=== PATIENT | male | born 1955 | race Caucasian/White ===

== ENCOUNTER 2016-04-02 10:45 | Inpatient (IN) | payer BC ==
[~2016-04-02] VITALS: Ht 177.8 cm; Wt 104.8 kg
[~2016-04-02 10:45] MED LIST: AMLO10TA2 PO; ATEN100T PO; FERR325T PO; LISI10TA2 PO; OMEPRAZOLE DR PO; TERA10CA3 PO
[2016-04-02] MEDS ORDERED: ADACEL/BOOSTRIX VACCINE (DIPHTH/PERTUSS/ACELL/TETANUS)0.5ML SYR (90715) As Ordered ONE (11:49)
[2016-04-02] MEDS ORDERED: cefTRIAXone SOD 1 GM VIAL (J0696) As Ordered ONE (11:49)
--- NOTE | 2016-04-02 11:54 | REP ---
CT brain without contrast: History: Trauma. No comparison studies. Findings: Bone window settings demonstrate a right frontal scalp laceration and hematoma. There is a depressed right frontal bone calvarial fracture with 3.8 mm of depression. A moderate amount of pneumocephalus is seen in the right cerebral hemisphere extending over the anterior aspect of frontal lobe; but also at the vertex adjacent to the falx. The fracture extends along the temporal region on the right side without further depression. There is no visible intracranial hemorrhage. There is diffuse cerebral atrophy. No infarct or mass lesion is seen. Vascular calcification is noted and there is some left sphenoid sinus mucosal thickening. Impression: Depressed right frontotemporal skull fracture with scalp laceration and right pneumocephalus. No intracranial hemorrhage is seen. Vascular calcification is noted. There is some mucosal thickening in the left sphenoid sinus. Signed by Kleber Arroyo MD 04/02/2016 11:45 A
[2016-04-02 12:09] LABS: MEAN CORPUSCULAR HEMOGLOBIN 27.7 pg (27.0-33.0); MEAN CORPUSCULAR HGB CONC 34.6 g/dl (32.0-36.5); RED CELL DISTRIBUTION WIDTH 13.9 % (11.5-14.5); WHITE BLOOD COUNT 7.6 K/mm3 (4.0-10.0)
[2016-04-02 12:16] LABS: INR 0.93
--- NOTE | 2016-04-02 12:16 | REP ---
CT STUDY OF THE CERVICAL SPINE WITHOUT CONTRAST: HISTORY: Trauma. TECHNIQUE: Helical scanning is acquired and overlapping 2 mm high resolution axial images were generated and reviewed at bone and soft tissue window settings. Coronal and sagittal multiplanar reformations images are generated. CT FINDINGS: There is no evidence of cervical spine element fracture. No skull base fracture is seen. Cervical vertebral body heights are preserved. Alignment is normal. There is straightening and slight reversal of the normal cervical lordosis. Mild osteoarthritic facet disease is seen throughout the mid cervical spine. Facet joints are normally aligned bilaterally at each cervical level on multiplanar re-formations images. There is no evidence of intraspinal or paraspinal hematoma. No extra vertebral abnormality is seen. Degenerative disc disease is seen at multiple levels, most pronounced is C4-5, C5-6 and C6-7. IMPRESSION: Degenerative spondylosis changes, otherwise negative CT study of the cervical spine without contrast. No fracture seen. Signed by Kleber Arroyo MD 04/02/2016 02:04 P
--- NOTE | 2016-04-02 12:16 | REP ---
Portable chest: Single view. History: Chest pain. Comparison study: June 24, 2013 Findings: The lungs are well inflated and clear. EKG electrodes are seen. Pulmonary vasculature is not increased. Heart size is normal. The pleural angles are sharp. No bony abnormality is seen. Impression: No active disease. Signed by Kleber Arroyo MD 04/02/2016 12:08 P
[2016-04-02 12:19] LABS: CALCIUM LEVEL 8.8 MG/DL (8.8-10.2); CREATININE FOR GFR 1.34 MG/DL (0.70-1.30); GLOMERULAR FILTRATION RATE 57.9 (>49); POTASSIUM SERUM 4.3 MEQ/L (3.5-5.1)
[2016-04-02] MEDS ORDERED: ONDANSETRON 4MG/2ML VIAL (J2405) As Ordered ONE ×2 (12:21→14:40)
[2016-04-02] MEDS ORDERED: MORPHINE 4 MG/ML 1ML SYRINGE As Ordered ONE (12:21)
[2016-04-02] MEDS ORDERED: LISI2.5T3 PO (12:22)
[2016-04-02] MEDS ORDERED: ACET50TAOT PO (12:22)
[2016-04-02] MEDS ORDERED: OMEP20CA3 PO (12:22)
--- NOTE | 2016-04-02 12:30 | CR.PDOC ---
[facility] Consultation Consultation DATE OF CONSULTATION: Apr 02, 2016 at 10:45 ATTENDING PHYSICIAN: Dr. Ugalde REASON FOR CONSULTATION/CHIEF COMPLAINT: Medical management HISTORY OF PRESENT ILLNESS: Patient is a 60 year old male with a PMHx of HTN and GERD who presented to the ER with complaints of head pain after he was struck in the head by a tree branch. He noted that he was sawing a tree when it fell and struck another tree, resulting in one of the branches striking his head. He noted that he fell to the ground at that time but did not lose consciousness. He noted that he had severe pain at that time and sought medical attention. He denied any muscle weakness or sensory problems at the time. He denies any blurry vision or double vision. He denied chest pain, shortness of breath, cough , palpitations, fevers or chills. He denied any nausea, vomiting, abdominal pain, constipation, diarrhea or urinary symptoms. He notes that he walks without any issues. He can go up and down 2 or 3 flights of stairs without getting short of breath or experiencing chest pain. He denies any history of heart attack or stroke. He has not had a stress test or cardiac catheterization in the past. ALLERGIES: Please see below. HOME MEDICATIONS: Please see below. 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 REVIEW OF SYSTEMS: Constitutional: Denies weight loss, or change in appetite, Positive for recent trauma Eyes: No visual changes or eye pain Ears, Nose, Throat: Denies nose bleeds, or difficulty swallowing Cardiovascular: Denies chest pain, sweating, or orthopnea Respiratory: Denies cough, wheezing, or shortness of breath GI: Juan nausea, vomiting, abdominal pain, diarrhea or constipation : Denies pain with urination or frequency Musculoskeletal: Denies joint pain or swelling Neuro / Psych: Denies muscle weakness or sensory loss Skin: No skin rashes noted All other review of systems negative; otherwise stated in history of present illness PHYSICAL EXAMINATION: - Vitals: BP 169/95, HR 79, RR 20, Sat 97%RA, Temp 97.7F - General: Lying in bed, No acute distress, Speaking in full sentences, AAOx3 - HEENT: PERRLA, EOMI, Head in bandages, bleeding - CVS: RRR, +S1S2, - Murmurs / rubs / gallops - Lungs: Fair air entry bilaterally, Clear to auscultation, No wheezing / rales / rhonchi - Abdomen: Soft, Non-distended, Non-tender, + Bowel sounds x 4 - Extremities: + PPx4, No lower extremity edema, No calf tenderness - Neuro: No focal motor or sensory deficit, 5/5 muscles strength in all 4 extremities - Skin: No visible rashes LABORATORY DATA: Please see below. ASSESSMENT/PLAN: Depressed right frontotemproal skull fracture with scalp laceration and right pneumocephalus likely 2/2 head trauma from tree branch - Presented to hospital after trauma at 1000AM, denies muscle or sensory deficit , no visual problems - Physical exam reveals no neurologic deficits - CT scan consistent with fracture, pneumocephalus and laceration - EKG reviewed; no significant change compared to EKG from 05/2013 - Dr. Ugalde (Neurosurgery) will be managing this case likely will be taken to OR - Pain control per neurosurgery Possible acute kidney injury, vs. chronic kidney disease - Baseline creatinine unclear, history of Cr being as high as 5, currently at 1.34 - Reported history of severe acute kidney injury in the past 2/2 NSAID use, but noted it has improved almost close to normal - Follows with Dr. Lepe as an outpatient - Will check urine osmolality and electrolytes - Will start IV fluid hydration HTN - BP mildly elevated in ER, possibly 2/2 pain - will continue with atenolol and amlodipine with holding parameters - will hold lisinopril for now (re: TONY) GERD - c/w omeprazole DVT prophylaxis - Will start SCDs Laboratory Data Labs 24H Laboratory Tests 2 04/02/16 11:55: Prothromb Time International Ratio 0.93, Prothrombin Time 12.6 04/02/16 11:56: Anion Gap 9, Blood Urea Nitrogen 22H, Creatinine 1.34H, Sodium Level 142, Potassium Level 4.3, Chloride Level 108H, Carbon Dioxide Level 25, Calcium Level 8.8, Glomerular Filtration Rate 57.9 CBC/BMP Laboratory Tests 2/5/17 11:56 Calcium Level 8.8, Red Blood Count 5.25, Mean Corpuscular Volume 80.0, Mean Corpuscular Hemoglobin 27.7, Mean Corpuscular Hemoglobin Concent 34.6, Red Cell Distribution Width 13.9 Allergies Coded Allergies: NSAIDs (Unverified Allergy, Unknown, KIDNEY FAILURE, 04/02/16) Home Medications Scheduled Amlodipine Besylate (Amlodipine Besylate) 10 Mg Tab 10 MG PO DAILY (Reported) Atenolol (Atenolol) 100 Mg Tab 100 MG PO DAILY (Reported) Lisinopril (Lisinopril) 2.5 Mg Tab 2.5 MG PO DAILY (Reported) Omeprazole (Omeprazole) 20 Mg Cap 20 MG PO DAILY (Reported) Scheduled PRN Acetaminophen (Acetaminophen) 500 Mg Tab 1,000 MG PO PRN PAIN (Reported) DEBORAH MITCHELL MD Apr 02, 2016 12:30
[2016-04-02] MEDS ORDERED: THROMBIN SOLN 20,000 UNITS KIT As Ordered ONE (13:13)
[2016-04-02] MEDS ORDERED: LIDOCAINE W/EPINEPHRINE 1% 20ML VIAL As Ordered ONE ×2 (13:13→14:19)
--- NOTE | 2016-04-02 13:19 | EDDOCDS ---
Nurse's Notes [facility] Name: Jone Patel Age: 60 yrs Sex: Male : 1955 Arrival Date: 04/02/2016 Time: 10:45 Bed 4 Private MD: Diagnosis: Unspecified fracture of skull-depressed skull fracture with scalp laceration and pneumocephalus Presentation: 04/02 10:48 Presenting complaint: Patient states: was dropping a big tree and it spun and hit srm another tree branch that fell and hit him in the head. not on blood thinners and no LOC. large lac to right forehead/ top of head. Adult Sepsis Screening: The patient does not have new or worsening altered mentation. Patient's respiratory rate is less than 22. Systolic blood pressure is greater than 100. Patient has a qSOFA score of 0- Negative Sepsis Screen. Suicide/Homicide risk assessment- the patient denies having any suicidal and/or homicidal ideations and does not present with any other emotional, behavioral or mental health complaints. 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 Transition of care: patient was not received from another setting of care. 10:48 Acuity: ODALYS Level 4 srm 10:48 Method Of Arrival: Walkin/Carried/Asstd srm 12:22 Acuity: ODALYS Level 2 ml6 Triage Assessment: 10:50 General: Appears in no apparent distress, Behavior is appropriate for age, cooperative. srm Pain: Pain currently is 5 out of 10 on a pain scale. 10:50 HIV screening NA for this visit Offered previously. srm Historical: - Allergies: Ibuprofen (kidney failure); - Home Meds: 1. atenolol 100 mg Oral tab 1 tab once daily 2. lisinopril 2.5 mg Oral tab 1 tab once daily 3. amlodipine 10 mg Oral tab 1 tab once daily 4. omeprazole 20 mg Oral cpDR 1 cap once daily - PMHx: Hypertension; GERD; - PSHx: Hernia repair; Tonsillectomy; - Social history: Smoking status: Patient states former smoker of tobacco. No barriers to communication noted, The patient speaks fluent Chadian, Speaks appropriately for age. - Family history: Not pertinent. - : The pt / caregiver states he / she is not on anticoagulants. Home medication list is obtained from the patient. - Exposure Risk Screening:: None identified. Screenin:20 Screening information is obtained from family members. Primary language is Chadian. jam1 Fall risk: No risks identified. Assistance ADL's: requires no assistance with activities of daily living. Abuse/DV Screen: The patient / caregiver reports he/she is: not in a situation that causes fear, pain or injury. Nutritional screening: No deficits noted. Exposure Risk Screening: None identified. Advance Directives: Currently, there is no health care proxy. There is no active DNR order. There is no living will. There is no Power of Bus Analyst. Advance directive information has not previously been placed in an [facility] medical record. Further advance directive information is declined. home support is adequate. Assessment: 10:55 Neurological: Level of Consciousness is awake, alert, Oriented to person, place, time, 6 Litigation Support Analyst are equal bilaterally Moves all extremities. Full function Gait is steady, Speech is normal, Facial symmetry appears normal, Pupils are PERRLA. Cardiovascular: No deficits noted. Capillary refill < 3 seconds is brisk in bilateral fingers toes. Respiratory: No deficits noted. Airway is patent Respiratory effort is even, unlabored, Respiratory pattern is regular, symmetrical, Breath sounds are clear bilaterally. GI: No deficits noted. Injury Description: Laceration sustained to right temporal area and right side of forehead is jagged, > 20 cm long, with pulsatile bleeding, was sustained 1-2 hours ago. is bleeding profusely a dressing was applied. 11:55 General: Appears in no apparent distress, comfortable, Behavior is appropriate for age, [facility] cooperative, pleasant. 11:55 Neurological: Level of Consciousness is awake, alert, Oriented to person, place, time, [facility] Litigation Support Analyst are equal bilaterally Moves all extremities. Full function Gait is steady, Speech is normal, Facial symmetry appears normal, Pupils are PERRLA. Cardiovascular: Rhythm is sinus rhythm. Respiratory: Airway is patent Respiratory effort is even, unlabored, Respiratory pattern is regular, symmetrical. Injury Description: Laceration sustained to face, head, scalp. 12:15 General: head wound continues to drain moderate amount bright red blood through [facility] bandage, reinforcements applied. 12:30 General: Dr. Sexton at bedside, dressing removed and reapplied, moderate amount [facility] bleeding present. 13:05 General: no changes from previous, prepped for OR, accompanied by family members, [facility] denies further needs. Vital Signs: 10:49 BP 169 / 95; Pulse 79; Resp 20; Temp 97.7; Pulse Ox 97% ; Weight 105.23 kg; Height 5 jlf ft. 10 in. (177.80 cm); Pain 5/10; 11:41 BP 161 / 86 (auto/); cjh 11:43 Pulse 60 MON; cjh 11:56 BP 146 / 86 (auto/); cjh 11:56 Pulse 62 MON; cjh 12:12 BP 166 / 109 (auto/); cjh 12:12 Pulse 66 MON; cjh 12:24 BP 149 / 84 (auto/); cjh 12:25 Pulse 64 MON; Pulse Ox 98% ; cjh 12:26 BP 149 / 90 (auto/); cjh 12:27 Pulse 64 MON; Pulse Ox 98% ; cjh 12:41 BP 144 / 81 (auto/); cjh 12:42 Pulse 66 MON; Pulse Ox 96% ; cjh 12:56 BP 140 / 82 (auto/); cjh 12:57 Pulse 64 MON; Pulse Ox 97% ; cjh 13:07 BP 140 / 82; Pulse 64; Resp 18; Temp 99.7; Pulse Ox 97% ; Pain 1/10; cjh 10:49 Body Mass Index 33.29 (105.23 kg, 177.80 cm) [facility] Vitals: 10:49 Log In Time: April 02, 2016 at 10:48. RN notified that patient meets Red Flag [facility] criteria. ED Course: 10:47 Patient visited by Gage Gao PCA. jlf 10:47 Patient moved to Waiting jlf 10:49 Triage Initiated srm 10:50 Patient visited by Gage Gao PCA. jlf 10:50 Patient moved to Pre RCE jlf 10:57 Patient moved to PR2 / 26 srm 10:58 Patient moved to I2 / M2 js13 11:01 Bailee Alejandro PA-C is PHCP. ef1 11:01 Nicole Villatoro MD is Attending Physician. ef1 11:01 Patient visited by Bailee Alejandro PA-C. ef1 11:03 Pt greeted and oriented to ED. Patient advised of names of staff involved in care, jam1 location of call morales, wait times and NPO status. Patient has correct armband on for positive identification. Bed in low position. Call light in reach. Side rails up X 1. Adult w/ patient. Door closed. 11:24 Patient visited by Bailee Alejandro PA-C. ef1 11:39 Patient moved to 4 ef1 11:44 Patient name changed from Edward\S\\S\Jorge\S\ to Edward\S\Dane\S\Jorge. EDMS 11:44 [facility] [place] [place] Payment Agreement was scanned into [employer] and attached to record. lg 11:58 Jovon Ugalde is Hospitalizing Provider. sd1 11:59 The patient / caregiver is instructed regarding the plan of care and ED course. Cardiac ml6 monitor on. Pulse ox on. NIBP on. 11:59 Inserted peripheral IV: 16gauge IV in right antecubital area and blood collected. ml6 Patient tolerated the procedure well. No procedures done that require assistance. Labs drawn. (by ED staff). Sent per order to lab. 12:07 CT Head Without Contrast Returned. EDMS 12:23 teletypesetter monitor on. Pulse ox on. NIBP on. lr2 12:23 EKG done. (by ED staff). Reviewed by Cathleen Kevin. lr2 12:24 Patient visited by Anna Phillip. lr2 12:38 CT Spine,Cervical W/o Contrast Returned. EDMS 12:38 Chest, 1 View Returned. EDMS 12:50 Admission Orders was scanned into [employer] and attached to record. ar3 Administered Medications: 12:03 Drug: Tetanus- Diptheria-Acellular Pertussis 0.5 ml [diphth,pertussis(acel),tetanus 2.5 [facility] Lf unit-8 mcg-5 Lf/0.5mL IM syringe (0.5 mL)] {Forest Officer: [employer]. Exp: 05/18/2018. Lot #: [id number]. } Route: IM; Site: left deltoid; 12:03 Drug: cefTRIAXone 2 grams Route: IVPB; Infused Over: 30 mins; Site: right antecubital; [facility] 12:30 Drug: Ondansetron 4 mg Route: IVP; Site: right antecubital; [facility] 13:02 Drug: morphine 4 mg Route: IVP; Site: right antecubital; [facility] Order Results: Lab Order: CBC; SPEC'M 04/02/16 11:56 Test: WHITE BLOOD COUNT; Value: 7.6; Range: 4.0-10.0; Units: K/mm3; Status: F Test: RED BLOOD COUNT; Value: 5.25; Range: 4.30-6.10; Units: M/mm3; Status: F Test: HEMOGLOBIN; Value: 14.5; Range: 14.0-18.0; Units: g/dl; Status: F Test: HEMATOCRIT; Value: 42.0; Range: 42.0-52.0; Units: %; Status: F Test: MEAN CORPUSCULAR VOLUME; Value: 80.0; Range: 80.0-96.0; Units: fl; Status: F Test: MEAN CORPUSCULAR HEMOGLOBIN; Value: 27.7; Range: 27.0-33.0; Units: pg; Status: F Test: MEAN CORPUSCULAR HGB CONC; Value: 34.6; Range: 32.0-36.5; Units: g/dl; Status: F Test: RED CELL DISTRIBUTION WIDTH; Value: 13.9; Range: 11.5-14.5; Units: %; Status: F Test: PLATELET COUNT, AUTOMATED; Value: 196; Range: 150-450; Units: k/mm3; Status: F Lab Order: MED Profile; [facility] 04/02/16 11:56 Test: GLUCOSE, FASTING; Value: 114; Range: 80-110; Abnormal: Above high normal; Units: MG/DL; Status: F Test: BLOOD UREA NITROGEN; Value: 22; Range: 7-18; Abnormal: Above high normal; Units: MG/DL; Status: F Test: CREATININE FOR GFR; Value: 1.34; Range: 0.70-1.30; Abnormal: Above high normal; Units: MG/DL; Status: F Test: GLOMERULAR FILTRATION RATE; Value: 57.9; Range: >49; Status: F Test: SODIUM LEVEL; Value: 142; Range: 136-145; Units: MEQ/L; Status: F Test: POTASSIUM SERUM; Value: 4.3; Range: 3.5-5.1; Units: MEQ/L; Status: F Test: CHLORIDE LEVEL; Value: 108; Range: 98-107; Abnormal: Above high normal; Units: MEQ/L; Status: F Test: CARBON DIOXIDE LEVEL; Value: 25; Range: 21-32; Units: MEQ/L; Status: F Test: ANION GAP; Value: 9; Range: 8-16; Units: MEQ/L; Status: F Test: CALCIUM LEVEL; Value: 8.8; Range: 8.8-10.2; Units: MG/DL; Status: F Test Note: ; Units are mL/min/1.73 m2 Chronic Kidney Disease Staging per NKF: Stage I & II GFR >=60 Normal to Mildly Decreased Stage III GFR 30-59 Moderately Decreased Stage IV GFR 15-29 Severely Decreased Stage V GFR <15 Very Little GFR Left ESRD GFR <15 on FIELD TRAINING MANAGER Lab Order: PT/INR; [facility] 04/02/16 11:55 Test: PROTHROMBIN TIME; Value: 12.6; Range: 12.3-14.5; Units: SECONDS; Status: F Test: INR; Value: 0.93; Status: F Test Note: ; THERAPUTIC HUMAN INR VALUES INDICATIONS NORMAL RANGES PROPHYLAXIS/TREATMENT OF: VENOUS THROMBOSIS 2.0-3.0 PULMONARY EMBOLISM 2.0-3.0 PREVENTION OF SYSTEMIC EMBOLISM FROM: TISSUE HEART VALVES 2.0-3.0 ACUTE MYOCARDIAL INFARCTION 2.0-3.0 VALVULAR HEART DISEASE 2.0-3.0 ATRIAL FIBRILLATION 2.0-3.0 MECHANICAL VALVES(HIGH RISK) 2.5-3.5 RECURRENT MYOCARDIAL INFARCTION 2.5-3.5 Radiology Order: CT Head Without Contrast Test: CT Head Without Contrast REASON FOR EXAMINATION: Trauma; CT brain without contrast:; ; History: Trauma. No comparison studies.; ; Findings: Bone window settings demonstrate a right frontal scalp laceration and; hematoma. There is a depressed right frontal bone calvarial fracture with 3.8 mm; of depression. A moderate amount of pneumocephalus is seen in the right cerebral; hemisphere extending over the anterior aspect of frontal lobe; but also at the; vertex adjacent to the falx. The fracture extends along the temporal region on; the right side without further depression.; ; There is no visible intracranial hemorrhage. There is diffuse cerebral atrophy.; No infarct or mass lesion is seen. Vascular calcification is noted and there is; some left sphenoid sinus mucosal thickening.; ; Impression:; ; Depressed right frontotemporal skull fracture with scalp laceration and right; pneumocephalus. No intracranial hemorrhage is seen. Vascular calcification is; noted. There is some mucosal thickening in the left sphenoid sinus.; ; ; Signed by; Kleber Arroyo MD 04/02/2016 11:45 A; Radiology Order: CT Spine,Cervical W/o Contrast Test: CT Spine,Cervical W/o Contrast REASON FOR EXAMINATION: Trauma; CT STUDY OF THE CERVICAL SPINE WITHOUT CONTRAST:; ; HISTORY: Trauma.; ; TECHNIQUE: Helical scanning is acquired and overlapping 2 mm high resolution; axial images were generated and reviewed at bone and soft tissue window settings.; Coronal and sagittal multiplanar reformations images are generated.; ; CT FINDINGS: There is no evidence of cervical spine element fracture. No skull; base fracture is seen. Cervical vertebral body heights are preserved. Alignment; is normal. There is straightening and slight reversal of the normal cervical; lordosis. Mild osteoarthritic facet disease is seen throughout the mid cervical; spine. Facet joints are normally aligned bilaterally at each cervical level on; multiplanar re-formations images. There is no evidence of intraspinal or; paraspinal hematoma. No extra vertebral abnormality is seen. Degenerative disc; disease is seen at multiple levels, most pronounced is C4-5, C5-6 and C6-7.; ; IMPRESSION:; Degenerative spondylosis changes, otherwise negative CT study of the cervical; spine without contrast. No fracture seen.; ; ; ; ; Unreviewed; Radiology Order: Chest, 1 View Test: Chest, 1 View REASON FOR EXAMINATION: Chest Pain; Portable chest: Single view.; ; History: Chest pain.; ; Comparison study: June 24, 2013; ; Findings: The lungs are well inflated and clear. EKG electrodes are seen.; Pulmonary vasculature is not increased. Heart size is normal. The pleural; angles are sharp. No bony abnormality is seen.; ; Impression:; ; No active disease.; ; ; Signed by; Kleber Arroyo MD 04/02/2016 12:08 P; Outcome: 11:59 Decision to Hospitalize by Provider. sd1 12:56 Discharge Assessment: Patient awake, alert and oriented x 3. No cognitive and/or cjh functional deficits noted. Patient verbalized understanding of disposition instructions. patient administered narcotics - yes. Patient was admitted to the hospital or transferred to another facility. The following High Risk Discharge criteria are identified: None. Admitted to OR. critical. CT Study completed. Property :Personal belongings accompany Pt. 13:19 Patient left the ED. ar3 Signatures: Dispatcher [employer] EDMS Nicole Villatoro MD MD sd1 Joy Valverde, RN RN Linnea Hays, ARBORIST CLIMBER ARBORIST CLIMBER jam1 Amy Heck, Reg Reg lg Bailee Alejandro, PA-C PA-C ef1 Mauro Diaz RN RN ml6 Kiley Hernandez, ARBORIST CLIMBER ARBORIST CLIMBER ar3 Елена VillaRN RN js13 Linnea Arriola,RN RN [facility] Gage Gao, ARBORIST CLIMBER ARBORIST CLIMBER f Anna Phillip lr2 Corrections: (The following items were deleted from the chart) 12:48 11:55 General: Appears in no apparent distress, comfortable, Behavior is appropriate [facility] for age, cooperative, pleasant, [facility] 12:51 12:47 Neurological: Level of Consciousness is awake, alert, Oriented to person, place, [facility] time, Litigation Support Analyst are equal bilaterally Moves all extremities. Full function Gait is steady, Speech is normal, Facial symmetry appears normal, Pupils are PERRLA, [facility] 12:51 12:47 Cardiovascular: Rhythm is sinus rhythm [facility] 12:51 12:47 Respiratory: Airway is patent Respiratory effort is even, unlabored, Respiratory [facility] pattern is regular, symmetrical, [facility] 12:51 12:47 Injury Description: Laceration sustained to face formerly [facility] MTDD
--- NOTE | 2016-04-02 13:19 | EDDOCDS ---
Physician Documentation [facility] Name: Jone Patel Age: 60 yrs Sex: Male : 1955 Arrival Date: 04/02/2016 Time: 10:45 Bed 4 Private MD: Disposition: 04/02/16 11:59 Hospitalization ordered by Jovon Ugalde for Inpatient Admission. Preliminary diagnosis is Unspecified fracture of skull - depressed skull fracture with scalp laceration and pneumocephalus. - Bed requested for Admit. - Status is Inpatient Admission. ar3 - Condition is Stable. - Problem is new. - Symptoms are unchanged. Historical: - Allergies: Ibuprofen (kidney failure); - Home Meds: 1. atenolol 100 mg Oral tab 1 tab once daily 2. lisinopril 2.5 mg Oral tab 1 tab once daily 3. amlodipine 10 mg Oral tab 1 tab once daily 4. omeprazole 20 mg Oral cpDR 1 cap once daily - PMHx: Hypertension; GERD; - PSHx: Hernia repair; Tonsillectomy; - Social history: Smoking status: Patient states former smoker of tobacco. No barriers to communication noted, The patient speaks fluent [place], Speaks appropriately for age. - Family history: Not pertinent. - : The pt / caregiver states he / she is not on anticoagulants. Home medication list is obtained from the patient. - Exposure Risk Screening:: None identified. Vital Signs: 04/02 10:49 BP 169 / 95; Pulse 79; Resp 20; Temp 97.7; Pulse Ox 97% ; Weight 105.23 kg / 231.99 jlf lbs; Height 5 ft. 10 in. (177.80 cm); Pain 5/10; 11:41 BP 161 / 86 (auto/); cjh 11:43 Pulse 60 MON; cjh 11:56 BP 146 / 86 (auto/); cjh 11:56 Pulse 62 MON; cjh 12:12 BP 166 / 109 (auto/); cjh 12:12 Pulse 66 MON; cjh 12:24 BP 149 / 84 (auto/); cjh 12:25 Pulse 64 MON; Pulse Ox 98% ; cjh 12:26 BP 149 / 90 (auto/); cjh 12:27 Pulse 64 MON; Pulse Ox 98% ; cjh 12:41 BP 144 / 81 (auto/); cjh 12:42 Pulse 66 MON; Pulse Ox 96% ; cjh 12:56 BP 140 / 82 (auto/); cjh 12:57 Pulse 64 MON; Pulse Ox 97% ; cjh 13:07 BP 140 / 82; Pulse 64; Resp 18; Temp 99.7; Pulse Ox 97% ; Pain 1/10; cjh 10:49 Body Mass Index 33.29 (105.23 kg, 177.80 cm) [facility] MDM: 11:01 Wound Care ordered. ef1 11:02 CT Head Without Contrast Ordered. EDMS 11:11 Tetanus- Diptheria-Acellular Pertussis 0.5 ml IM once; Routine booster 10-64yrs, >64 ef1 with child contact [employer] [employer] ordered. 11:17 Financial registration complete. lg 11:37 CT Spine,Cervical W/o Contrast Ordered. EDMS 11:37 IV Saline Lock ordered. sd1 11:37 cefTRIAXone 2 grams IVPB once over 30 mins; dilute in 50mL of NS or D5W ordered. sd1 11:38 CBC Ordered. EDMS 11:38 MED Profile Ordered. EDMS 11:38 PT/INR Ordered. EDMS 11:38 Straightening Machine Operator/Pulse Ox/q 15 min VS ordered. sd1 11:44 [facility] [place] was scanned into [employer] and attached to record. lg 11:56 ECG WITH READING ER PHYS+CARDIAG ordered. EDMS 11:56 Chest, 1 View Ordered. EDMS 12:13 NPO DIET ordered. EDMS 12:18 CBC Reviewed. sd1 12:18 PT/INR Reviewed. sd1 12:18 CT Head Without Contrast Reviewed. sd1 12:19 morphine 4 mg IVP every 15 minutes; Document pain score/vitals after each dose (Hold if sd1 SBP < 90mmHg) x2 ordered. 12:19 Ondansetron 4 mg IVP once ordered. sd1 12:43 CREATININE,RANDOM URINE Ordered. EDMS 12:43 SODIUM,RANDOM URINE Ordered. EDMS 12:43 OSMOLALITY,URINE Ordered. EDMS 12:50 Admission Orders was scanned into [employer] and attached to record. ar3 Administered Medications: 12:03 Drug: Tetanus- Diptheria-Acellular Pertussis 0.5 ml [diphth,pertussis(acel),tetanus 2.5 [facility] Lf unit-8 mcg-5 Lf/0.5mL IM syringe (0.5 mL)] {Phlebotomy Manager: [employer]. Exp: 05/18/2018. Lot #: [id number]. } Route: IM; Site: left deltoid; 12:03 Drug: cefTRIAXone 2 grams Route: IVPB; Infused Over: 30 mins; Site: right antecubital; [facility] 12:30 Drug: Ondansetron 4 mg Route: IVP; Site: right antecubital; [facility] 13:02 Drug: morphine 4 mg Route: IVP; Site: right antecubital; [facility] Signatures: Dispatcher [employer] EDNicole Torres MD MD sd1 Joy Valverde RN RN srm Ganter, LoriLee, Greyson Reg lg Bailee Alejandro, PA-C PA-C ef1 Kiley Hernandez, STORE CLERK CHECKER STORE CLERK CHECKER ar3 Linnea Arriola RN RN [facility] The chart was reviewed and I authenticate all verbal orders and agree with the evaluation and treatment provided.Attachments: 11:44 [facility] [place] Agreement lg 12:50 Admission Orders ar3 MTDD
[2016-04-02] MEDS ORDERED: LIDOCAINE W/EPINEPHRINE 1% 20ML VIAL XX ONE (14:30)
[2016-04-02] MEDS ORDERED: THROMBIN SOLN 20,000 UNITS KIT XX ONE (14:30)
--- NOTE | 2016-04-02 14:36 | ECGEPIP ---
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
[2016-04-02] MEDS ORDERED: MIDAZOLAM INJ 2 MG/2 ML VIAL (J2250) As Ordered ONE (14:39)
[2016-04-02] MEDS ORDERED: PROPOFOL 200 MG/20 ML VIAL As Ordered ONE (14:39)
[2016-04-02] MEDS ORDERED: ePHEDrine SULFATE 25 MG/5 ML(5MG/ML) SYRINGE As Ordered ONE ×2 (14:39→14:40)
[2016-04-02] MEDS ORDERED: fentaNYL 250 MCG/5 ML INJECTION (J3010) As Ordered ONE (14:39)
[2016-04-02] MEDS ORDERED: NEOSTIGMINE 1MG/ML 5 ML SYRINGE (J2710) As Ordered ONE (14:40)
[2016-04-02] MEDS ORDERED: GLYCOPYRROLATE INJ 0.2 MG/ML 2 ML VIAL As Ordered ONE (14:40)
[2016-04-02] MEDS ORDERED: METOCLOPRAMIDE INJ 10MG/2ML VIAL (J2765) As Ordered ONE (14:40)
[2016-04-02] MEDS ORDERED: LIDOCAINE 2% INJ 100 MG/5 ML SDV (FOR ANES.) As Ordered ONE (14:40)
[2016-04-02] MEDS ORDERED: DESFLURANE 240 ML INHALANT As Ordered ONE (14:48)
[2016-04-02] MEDS ORDERED: SEVOFLURANE INHAL SOLN 250 ML BTL As Ordered ONE (14:49)
[2016-04-02] MEDS ORDERED: METOCLOPRAMIDE INJ 10MG/2ML VIAL (J2765) IV PRN (16:45)
[2016-04-02] MEDS ORDERED: fentaNYL 100 MCG/2 ML INJECTION (J3010) IV PRN (16:45)
[2016-04-02] MEDS ORDERED: LR 1,000 ML IV SCH (16:45)
[2016-04-02] MEDS ORDERED: ONDANSETRON 4MG/2ML VIAL (J2405) IV PRN (16:45)
[2016-04-02] MEDS: KCL 20MEQ IN D5/0.45NS 1000ML 1,000 ML IV SCH (17:27)
[2016-04-02] MEDS: ceFAZolin SOD 1 GM in D5W MINI-BAG PLUS 50 ML IV SCH (17:27)
[2016-04-02] MEDS ORDERED: NS 1,000 ML IV SCH (17:30)
[2016-04-02] MEDS: ACETAMINOPHEN TAB 650MG DOSE (2X325MG) PO PRN ×2 (17:56→22:22)
[2016-04-02 20:00] VITALS: BP 135/76
[2016-04-02 22:00] VITALS: BP 140/73
[2016-04-03] VITALS (11 sets, daily range): BP systolic 124–149; BP diastolic 67–81
[2016-04-03] MEDS: ceFAZolin SOD 1 GM in D5W MINI-BAG PLUS 50 ML IV SCH ×5 (00:15→23:17)
[2016-04-03] MEDS: ACETAMINOPHEN TAB 650MG DOSE (2X325MG) PO PRN ×6 (02:11→22:38)
[2016-04-03] MEDS: KCL 20MEQ IN D5/0.45NS 1000ML 1,000 ML IV SCH (03:00)
[2016-04-03 04:43] LABS: BASO % 0.1 % (0.0-1.0); EOS % 0.6 % (0.0-3.0); LARGE UNSTAINED CELL # 0.1 K/mm3 (0.0-0.4); LARGE UNSTAINED CELL % 1.2 % (0.0-4.0); LYMPH # 0.8 K/mm3 (1.5-4.5); LYMPH % 8.1 % (24.0-44.0); MEAN CORPUSCULAR HEMOGLOBIN 27.7 pg (27.0-33.0); MEAN CORPUSCULAR HGB CONC 34.4 g/dl (32.0-36.5); MEAN CORPUSCULAR VOLUME 80.5 fl (80.0-96.0); MONO # 0.7 K/mm3 (0.0-0.8); MONO % 8.1 % (0.0-5.0); NEUTROPHILS # 6.9 K/mm3 (1.8-7.7); NEUTROPHILS % 81.9 % (36.0-66.0); PLATELET COUNT, AUTOMATED 161 k/mm3 (150-450); RED CELL DISTRIBUTION WIDTH 14.3 % (11.5-14.5); WHITE BLOOD COUNT 8.4 K/mm3 (4.0-10.0)
[2016-04-03 04:59] LABS: ALBUMIN 3.5 GM/DL (3.2-5.2); ALBUMIN/GLOBULIN RATIO 1.13 (1.00-1.93); BILIRUBIN,TOTAL 0.5 MG/DL (0.2-1.0); CALCIUM LEVEL 8.2 MG/DL (8.8-10.2); CREATININE FOR GFR 1.34 MG/DL (0.70-1.30); GLOMERULAR FILTRATION RATE 57.9 (>49); MAGNESIUM LEVEL 1.7 MG/DL (1.8-2.4); POTASSIUM SERUM 4.1 MEQ/L (3.5-5.1); TOTAL PROTEIN 6.6 GM/DL (6.4-8.2)
--- NOTE | 2016-04-03 06:20 | CR ---
DATE OF CONSULTATION: 04/02/2016 This 60-year-old, right-handed gentleman was seen at the request of Dr. Nicole Harding with head injury, including depressed skull fracture and pneumocephalus. Patient was seen in the emergency room. He was awake and alert, oriented times three. He claimed he was cutting a tree and a branch fell on his head and knocked him down to the ground, though he denies any loss of consciousness. There is no history of progressive deterioration in the content or level of his consciousness or vitals. There is no history of cerebrospinal fluid (CSF) rhinorrhea or otorrhea, though there is continuous bleeding from his lacerated wound on the right frontoparietal region. Patient denies any other symptoms. Patient was seen in the presence of his . PAST MEDICAL HISTORY: Was noted for hypertension and/or hypertensive heart disease, renal failure, gastroesophageal reflux disease (GERD). SURGICAL HISTORY: Was noted for tonsillectomy and adenoidectomy (T and A), right inguinal herniorrhaphy, and surgery on his finger on the left hand. FAMILY HISTORY: Noncontributory. SOCIAL HISTORY: Patient gives about a 30 pack-year history of smoking and claims he sometimes drinks everyday and other occasions, he may not drink for 6 months. ON EXAMINATION: Today, he is found to be awake and alert, oriented times three. Pupils are nearly equal and reacting. Extraocular movements are full, though jerky and coarse. Cerebellar examination is essentially unremarkable except for occasional dysrhythmia and dysmetria. Gait was not tested. Plantars are equivocal. There is no clonus or obvious sensory level. His deep tendon reflexes are symmetrically diminished. There is a large lacerated wound in the right frontal region with CSF drainage. No brain tissue is seen in the lacerated wound. I could not detect any gross focal motor weakness in any limbs. Examination of the cervical spine reveals mild to moderate paraspinal spasm. Provocative tests for apophyseal arthritis or irritation are mildly positive, though he denies any pertinent symptoms. There is a patchy paresthesia bilaterally along C6 and/or median distribution, though, once again, he denies any pertinent symptoms. Examination of the lumbar spine reveals similarly mild to moderate paraspinal spasm. Straight leg raising and foraminal compression tests are negative bilaterally. He had a patchy paresthesia in the L5-S1 distribution. Pedal pulses are palpable. He denies any pertinent symptoms for lumbar spondylosis or peripheral neuropathy, though the latter cannot be excluded with certainty. IMPRESSION: Acute head injury with open comminuted depressed skull fracture with cerebrospinal fluid fistula, pneumocephalus, mild central nervous system (CERTIFIED PERSONAL CHEF) dysfunction, cervical spondylosis, lumbar spondylosis, early peripheral neuropathy. PLANS AND RECOMMENDATIONS: The CT scan of the head does show comminuted depressed fracture in the right parietal region. There is a pneumocephalus, suggesting dural tear. There is perfuse bleeding from the lacerated wound, though it is controlled by tight cranial bandage applied in the emergency room (ER). Various options of management were discussed with the patient and his . Grave outlook was discussed. They understood my rationale for recommending exploration, debridement, and possible repair of the dura and/or skull defect, the latter either at this setting or [address] if needed. They all understand the scope, expected outcome, sequelae, roll, and all complications of the surgery. They understood the risks include, but are not limited to, , coma, persistence or worsening of spinal fluid leakage, seizure disorder, persistent vegetative state, loss of any or all vital bodily functions, infection, bleeding, and/or any catastrophic sequelae. They understand the infection may be protracted and may exhibit several months or even later after this contaminated wound. Patient and his wish to proceed with surgery. Patient has been seen by the hospitalist, and arrangements are now made to take him to surgery for debridement, elevation of the depressed skull fracture and possible repair of the dura, and possible cranioplasty.
--- NOTE | 2016-04-03 06:30 | REPUSA ---
CLINICAL HISTORY: Followup exam. TECHNIQUE: Multiple axial brain CT scan sections were obtained from base to vertex without contrast a dministration. COMMENTS: Comparison is made to the prior exam performed on 04/02/2016. Decompression of the right frontal bone with surgical intervention at the level of the depressed skul l fracture in the right frontal bone. No residual bony depression is identified. The residual left rea bsequent compression of the right frontal bone. Minimal hemorrhagic products are identified in the ri ght subdural space with maximum thickness measuring 2 mm adjacent to the corresponding right frontal cortex. Minimal tiny residual bone fragments are still identified in the extra-axial space without rea bsequent impingement on the adjacent cortex. Moderate pneumocephaly is identified. Acute/subacute elsa gical/traumatic right frontal soft tissue changes are identified. There is no evidence of another skull fracture. The study shows normal configuration of sella turcica.There is no midline shift. No hydrocephalus is present. No abnormal calcifications are noted. No other acute significant abnormalities are seen either in the posterior fossa or supratentorial com partment. Unchanged left sphenoid chronic sinusitis. IMPRESSION: Surgical intervention at the level of the depressed right frontal skull fracture. No residual impingement on the right frontal cortex. Minimal left acute/subacute hemorrhagic products in the right frontal subdural space. Minimal residual bone fragments. No subsequent impingement on the cortex. Pneumocephaly. Right frontal soft tissue changes. Thank you for your kind referral of this patient.
[2016-04-03] MEDS: OMEPRAZOLE 20 MG CAP PO SCH (08:32)
[2016-04-03] MEDS: amLODIPine 10 MG TAB PO SCH (08:32)
[2016-04-03] MEDS: LISINOPRIL *2.5 MG* TAB PO SCH (08:33)
[2016-04-03] MEDS: ATENOLOL 50 MG TAB PO SCH (08:33)
--- NOTE | 2016-04-03 08:35 | IPNPDOC ---
Date Seen The patient was seen on 04/03/16. Progress Note Hospitalist Progress Note Subjective: The patient states that he overall feels well, but he does have a little bit of dizziness with sitting up. He feels much improved from yesterday. Objective: Physical Exam: Vitals: Vital Sign - Last 24 Hours 04/02/16 04/02/16 04/02/16 04/02/16 16:20 16:35 16:53 20:00 Temp 97.7 99.2 98.2 Pulse 85 77 74 77 Resp 20 18 74 18 B/P 109/71 123/70 131/70 135/76 Pulse Ox 95 97 96 98 O2 Delivery Nasal Cannula Nasal Cannula Nasal Cannula Nasal Cannula O2 Flow Rate 3 3 3 3.0 04/02/16 04/03/16 04/03/16 04/03/16 22:00 00:00 02:00 04:00 Temp 98.0 98.4 98.0 Pulse 76 70 72 67 Resp 18 20 18 18 B/P 140/73 139/74 127/70 124/67 Pulse Ox 95 93 94 93 O2 Delivery Room Air Room Air Room Air Room Air 04/03/16 04/03/16 04/03/16 06:00 07:45 08:32 Pulse 73 81 95 Resp 18 18 B/P 126/67 149/81 140/74 Pulse Ox 93 94 O2 Delivery Room Air Room Air General: Awake, alert, no acute distress HEENT: Extraocular movements intact, dressing on his head CV: Regular rate and rhythm, no murmurs rubs or gallops Lungs: Clear to auscultation bilaterally Abd: Soft, nontender, nondistended, normal bowel sounds Extremities: No Edema Neuro: Alert and oriented 3, normal speech Psych: Normal mood and affect Labs and Imaging: Laboratory Tests 04/02/16 11:56 Calcium Level 8.8, Red Blood Count 5.25, Mean Corpuscular Volume 80.0, Mean Corpuscular Hemoglobin 27.7, Mean Corpuscular Hemoglobin Concent 34.6, Red Cell Distribution Width 13.9 04/03/16 04:05 Calcium Level 8.2 L, Red Blood Count 4.66, Mean Corpuscular Volume 80.5, Mean Corpuscular Hemoglobin 27.7, Mean Corpuscular Hemoglobin Concent 34.4, Red Cell Distribution Width 14.3, Aspartate Amino Transf (AST/SGOT) 27, Alanine Aminotransferase (ALT/SGPT) 23, Alkaline Phosphatase 76, Total Bilirubin 0.5, Total Protein 6.6, Albumin 3.5, Neutrophils (%) (Auto) 81.9 H, Lymphocytes (%) ( Auto) 8.1 L, Monocytes (%) (Auto) 8.1 H, Eosinophils (%) (Auto) 0.6, Basophils ( %) (Auto) 0.1, Neutrophils # (Auto) 6.9, Lymphocytes # (Auto) 0.8 L, Monocytes # (Auto) 0.7, Eosinophils # (Auto) 0.0, Basophils # (Auto) 0.0 Assessment and Plan: 60-year-old male with hypertension and GERD who is admitted to the service of Dr. Ugalde after he suffered a traumatic injury to his head that resulted in a right frontotemporal skull fracture. He is now status post surgical repair with Dr. Ugalde. We have been consult for medical management. 1. Hypertension: The patient's blood pressure is currently adequately controlled. We will continue his home Norvasc and beta matty. Upon review of his creatinine, I believe that it is safe for him to continue his low-dose KELLY inhibitor as well. 2. GERD: Continue home PPI. 3. Elevated creatinine: Patient's creatinine upon admission was 1.34, and this morning it is unchanged. The patient does have a history of significant acute kidney injury after taking NSAIDs. He states that he no longer follows with Dr. Lepe, but rather follows with his primary physician Dr. Farooq, who told him that his kidneys are more or less normal. We did check a FENa, and it is 1.32, and I suspect that this creatinine of 1.3 is actually his baseline and represents a stage III chronic kidney disease. The patient received some IV fluids yesterday, but has had no real change in his creatinine. I believe at this time, it safe to resume his KELLY inhibitor, and continue to monitor his creatinine daily. DVT prophylaxis: As per the surgical/primary team VS, I&O, 24H, Fishbone VS, I&O, 24H, Fishbone Vital Signs Date Time Temp Pulse Resp B/P Pulse Ox O2 Delivery O2 Flow Rate FiO2 04/03/16 08:32 95 140/74 04/03/16 07:45 18 94 Room Air 2/6/17 04:00 98.0 04/02/16 20:00 3.0 I&O- Last 24 Hours up to 6 AM 04/03/16 06:00 Intake Total 3050 ml Output Total 1900 ml Balance 1150 ml Laboratory Tests 2 04/02/16 11:55: Prothromb Time International Ratio 0.93, Prothrombin Time 12.6 04/02/16 11:56: Anion Gap 9, Blood Urea Nitrogen 22H, Creatinine 1.34H, Sodium Level 142, Potassium Level 4.3, Chloride Level 108H, Carbon Dioxide Level 25, Calcium Level 8.8, Glomerular Filtration Rate 57.9 04/02/16 22:15: Urine Random Creatinine 102.0, Urine Random Osmolality 666, Urine Random Sodium 142 04/03/16 04:05: Anion Gap 8, Blood Urea Nitrogen 19H, Creatinine 1.34H, Sodium Level 140, Potassium Level 4.1, Chloride Level 106, Carbon Dioxide Level 26, Calcium Level 8.2L, Glomerular Filtration Rate 57.9, Aspartate Amino Transf (AST/SGOT) 27, Alanine Aminotransferase (ALT/SGPT) 23, Alkaline Phosphatase 76, Total Bilirubin 0.5, Total Protein 6.6, Albumin 3.5, Albumin/Globulin Ratio 1.13, White Blood Count 8.4, Red Blood Count 4.66, Hemoglobin 12.9L, Hematocrit 37.5L , Mean Corpuscular Volume 80.5, Mean Corpuscular Hemoglobin 27.7, Mean Corpuscular Hemoglobin Concent 34.4, Red Cell Distribution Width 14.3, Platelet Count 161, Neutrophils (%) (Auto) 81.9H, Lymphocytes (%) (Auto) 8.1L, Monocytes (%) (Auto) 8.1H, Eosinophils (%) (Auto) 0.6, Basophils (%) (Auto) 0.1, Neutrophils # (Auto) 6.9, Lymphocytes # (Auto) 0.8L, Monocytes # (Auto) 0.7, Eosinophils # (Auto) 0.0, Basophils # (Auto) 0.0, Large Unclassified Cells # 0.1 , Large Unclassified Cells % 1.2, Magnesium Level 1.7L Laboratory Tests 04/02/16 11:56 Calcium Level 8.8, Red Blood Count 5.25, Mean Corpuscular Volume 80.0, Mean Corpuscular Hemoglobin 27.7, Mean Corpuscular Hemoglobin Concent 34.6, Red Cell Distribution Width 13.9 04/03/16 04:05 Calcium Level 8.2 L, Red Blood Count 4.66, Mean Corpuscular Volume 80.5, Mean Corpuscular Hemoglobin 27.7, Mean Corpuscular Hemoglobin Concent 34.4, Red Cell Distribution Width 14.3, Aspartate Amino Transf (AST/SGOT) 27, Alanine Aminotransferase (ALT/SGPT) 23, Alkaline Phosphatase 76, Total Bilirubin 0.5, Total Protein 6.6, Albumin 3.5, Neutrophils (%) (Auto) 81.9 H, Lymphocytes (%) ( Auto) 8.1 L, Monocytes (%) (Auto) 8.1 H, Eosinophils (%) (Auto) 0.6, Basophils ( %) (Auto) 0.1, Neutrophils # (Auto) 6.9, Lymphocytes # (Auto) 0.8 L, Monocytes # (Auto) 0.7, Eosinophils # (Auto) 0.0, Basophils # (Auto) 0.0 Microbiology 04/02/16 MRSA Screen, Received Pending 04/02/16 Gram Stain - Preliminary, Resulted 04/02/16 Bacterial Culture, Resulted Pending WENDY MARK Apr 03, 2016 08:35
[2016-04-03] MEDS ORDERED: PROCHLORPERAZINE 5 MG TAB (S0183) PO PRN (09:45)
[2016-04-04] VITALS (9 sets, daily range): BP systolic 138–162; BP diastolic 74–92
[2016-04-04] MEDS: ACETAMINOPHEN TAB 650MG DOSE (2X325MG) PO PRN ×2 (02:44→08:51)
[2016-04-04 05:01] LABS: BASO % 0.3 % (0.0-1.0); EOS # 0.1 K/mm3 (0.0-0.50); LARGE UNSTAINED CELL # 0.2 K/mm3 (0.0-0.4); LARGE UNSTAINED CELL % 2.3 % (0.0-4.0); LYMPH % 10.9 % (24.0-44.0); MEAN CORPUSCULAR HEMOGLOBIN 26.6 pg (27.0-33.0); MEAN CORPUSCULAR HGB CONC 32.5 g/dl (32.0-36.5); MEAN CORPUSCULAR VOLUME 81.9 fl (80.0-96.0); MONO # 0.7 K/mm3 (0.0-0.8); MONO % 7.5 % (0.0-5.0); NEUTROPHILS # 7.3 K/mm3 (1.8-7.7); PLATELET COUNT, AUTOMATED 185 k/mm3 (150-450); RED CELL DISTRIBUTION WIDTH 13.6 % (11.5-14.5); WHITE BLOOD COUNT 9.3 K/mm3 (4.0-10.0)
[2016-04-04 05:22] LABS: ALBUMIN 3.7 GM/DL (3.2-5.2); ALKALINE PHOSPHATASE 74 U/L (45-117); ALT/SGPT 19 U/L (12-78); ANION GAP 8 MEQ/L (8-16); AST/SGOT 22 U/L (15-37); BILIRUBIN,TOTAL 0.5 MG/DL (0.2-1.0); BLOOD UREA NITROGEN 17 MG/DL (7-18); CALCIUM LEVEL 9.4 MG/DL (8.8-10.2); CARBON DIOXIDE LEVEL 26 MEQ/L (21-32); CHLORIDE LEVEL 104 MEQ/L (98-107); CREATININE FOR GFR 1.23 MG/DL (0.70-1.30); GLOMERULAR FILTRATION RATE > 60.0 (>49); GLUCOSE, FASTING 109 MG/DL (80-110); MAGNESIUM LEVEL 1.9 MG/DL (1.8-2.4); POTASSIUM SERUM 4.6 MEQ/L (3.5-5.1); SODIUM LEVEL 138 MEQ/L (136-145); TOTAL PROTEIN 7.4 GM/DL (6.4-8.2)
[2016-04-04] MEDS: ceFAZolin SOD 1 GM in D5W MINI-BAG PLUS 50 ML IV SCH ×2 (05:43→11:44)
--- NOTE | 2016-04-04 06:43 | RO ---
DATE OF PROCEDURE: 04/02/2016 PREOPERATIVE DIAGNOSES: Acute head injury, open depressed comminuted skull fracture of the right frontoparietal region, cerebrospinal fluid (CSF) fistula, obesity, comorbidities (renal failure, hypertension). POSTOPERATIVE DIAGNOSES: Acute head injury, open depressed comminuted skull fracture of the right frontoparietal region, cerebrospinal fluid (CSF) fistula, obesity, comorbidities (renal failure, hypertension). PROCEDURE: Right frontoparietal craniotomy, debridement, elevation of comminuted depressed skull fracture, duraplasty using bovine graft and DuraSeal, cranioplasty using a Medicon plate and local bone fragments. SURGEON: Dr. Jovon Ugalde GRAPHITE GRINDER: ANESTHESIA: General. FINDINGS: Please see my recent notes from the emergency room. Patient was seen in the emergency room earlier today with a history of headaches subsequent to a branch of tree falling on his head and knocking him down while he was trying to cut the tree. Patient had no localizing deficits. He was awake and alert in the emergency room. He had a large lacerated wound in the frontoparietal region on the right with CSF leaking through the incision. The CT scan showed comminuted depressed skull fracture mostly in the frontal region on the right. Patient and family were aware of all options, risk, scope, expected outcome, sequelae, and complications of the proposed surgery. Patient and his understood no guarantees of any kind could be given and that the risk of surgery included, but not limited to, , paralysis, loss of any or all vital bodily functions, seizure disorder, status epilepticus, persistent leakage of the spinal fluid, persistent vegetative state, myocardial infarction (IA), deep venous thrombosis (DVT), pulmonary embolism (PE), failure of surgery, need for multiple surgeries, and/or any catastrophic sequelae. Patient and family wished to proceed with surgery. After informed consent and after all matters pertaining to surgery, anesthesia, and followup care had been discussed, he was taken to the operating room from the emergency room. DESCRIPTION OF PROCEDURE: Once in the operating room, general endotracheal anesthesia was given by the anesthesia service. The area of surgery was prepped and draped in the usual sterile fashion. After adequate prep and drape, the lacerated wound was debrided and thoroughly cleaned with copious irrigation. The lacerated wound was deepened to the pericranium. There was considerable hematoma in the pericranium and subgaleal. This was removed. Depressed skull fracture was identified in the frontal region. He had stellate fracture around it. A car hole was created posterior to the depressed skull fracture and, using a craniotome, the depressed skull fracture was encompassed in the craniotomy flap. There were multiple fragments of the inner table, which had dislodged and shredded the dura. The fragments were removed, and dura was anchored to the skull vault. A bovine dural graft was placed over the shredded dura and anchored in two places to the head of the dura around. DuraSeal was applied. No obvious CSF leak was identified after waiting for several minutes. At this time, the bony fragments were also debrided and cleaned; and using a Medicon linear plate, multiple fragments were united and the bone flap was then anchored via the same plate, which was holding his multiple fragments on the skull vault by applying two self-drilling screws in the skull vault. Blood loss was negligible throughout the procedure. At this time, the wound was closed in anatomic layers. Patient tolerated the procedure well and was transferred to recovery room in stable condition. Patient woke up while in the operating room and was awake and alert, surprisingly oriented times three, and moving all limbs. At the time of dictation, patient was also seen in the recovery room, where he was awake and alert, cheerful, talkative, and had no complaints or any focal neurological deficits. Operative findings were discussed with the patient's and family in the waiting room.
[2016-04-04] MEDS: OMEPRAZOLE 20 MG CAP PO SCH (08:50)
[2016-04-04] MEDS: ATENOLOL 50 MG TAB PO SCH (08:50)
[2016-04-04] MEDS: LISINOPRIL *2.5 MG* TAB PO SCH (08:51)
[2016-04-04] MEDS: amLODIPine 10 MG TAB PO SCH (08:51)
--- NOTE | 2016-04-04 14:20 | EDDOCDS ---
Physician Documentation [facility] Name: Jone Patel Age: 60 yrs Sex: Male : 1955 Arrival Date: 04/02/2016 Time: 10:45 Bed 4 Private MD: Disposition: 04/02/16 11:59 Hospitalization ordered by Jovon Ugalde for Inpatient Admission. Preliminary diagnosis is Unspecified fracture of skull - depressed skull fracture with scalp laceration and pneumocephalus. - Bed requested for Admit. - Status is Inpatient Admission. ar3 - Condition is Stable. - Problem is new. - Symptoms are unchanged. Historical: - Allergies: Ibuprofen (kidney failure); - Home Meds: 1. atenolol 100 mg Oral tab 1 tab once daily 2. lisinopril 2.5 mg Oral tab 1 tab once daily 3. amlodipine 10 mg Oral tab 1 tab once daily 4. omeprazole 20 mg Oral cpDR 1 cap once daily - PMHx: Hypertension; GERD; - PSHx: Hernia repair; Tonsillectomy; - Social history: Smoking status: Patient states former smoker of tobacco. No barriers to communication noted, The patient speaks fluent Tongan, Speaks appropriately for age. - Family history: Not pertinent. - : The pt / caregiver states he / she is not on anticoagulants. Home medication list is obtained from the patient. - Exposure Risk Screening:: None identified. Vital Signs: 04/02 10:49 BP 169 / 95; Pulse 79; Resp 20; Temp 97.7; Pulse Ox 97% ; Weight 105.23 kg / 231.99 jlf lbs; Height 5 ft. 10 in. (177.80 cm); Pain 5/10; 11:41 BP 161 / 86 (auto/); cjh 11:43 Pulse 60 MON; cjh 11:56 BP 146 / 86 (auto/); cjh 11:56 Pulse 62 MON; cjh 12:12 BP 166 / 109 (auto/); cjh 12:12 Pulse 66 MON; cjh 12:24 BP 149 / 84 (auto/); cjh 12:25 Pulse 64 MON; Pulse Ox 98% ; cjh 12:26 BP 149 / 90 (auto/); cjh 12:27 Pulse 64 MON; Pulse Ox 98% ; cjh 12:41 BP 144 / 81 (auto/); cjh 12:42 Pulse 66 MON; Pulse Ox 96% ; cjh 12:56 BP 140 / 82 (auto/); h 12:57 Pulse 64 MON; Pulse Ox 97% ; h 13:07 BP 140 / 82; Pulse 64; Resp 18; Temp 99.7; Pulse Ox 97% ; Pain 1/10; cjh 10:49 Body Mass Index 33.29 (105.23 kg, 177.80 cm) [facility] MDM: 11:01 Wound Care ordered. ef1 11:02 CT Head Without Contrast Ordered. EDMS 11:11 Tetanus- Diptheria-Acellular Pertussis 0.5 ml IM once; Routine booster 10-64yrs, >64 ef1 with child contact Beatrice Omnicell ordered. 11:17 Financial registration complete. lg 11:37 CT Spine,Cervical W/o Contrast Ordered. EDMS 11:37 IV Saline Lock ordered. sd1 11:37 cefTRIAXone 2 grams IVPB once over 30 mins; dilute in 50mL of NS or D5W ordered. sd1 11:38 CBC Ordered. EDMS 11:38 MED Profile Ordered. EDMS 11:38 PT/INR Ordered. EDMS 11:38 Nipple Machine Operator/Pulse Ox/q 15 min VS ordered. sd1 11:44 [facility] Payment Agreement was scanned into [employer] and attached to record. lg 11:56 ECG WITH READING ER PHYS+CARDIAG ordered. EDMS 11:56 Chest, 1 View Ordered. EDMS 12:13 NPO DIET ordered. EDMS 12:18 CBC Reviewed. sd1 12:18 PT/INR Reviewed. sd1 12:18 CT Head Without Contrast Reviewed. sd1 12:19 morphine 4 mg IVP every 15 minutes; Document pain score/vitals after each dose (Hold if sd1 SBP < 90mmHg) x2 ordered. 12:19 Ondansetron 4 mg IVP once ordered. sd1 12:43 CREATININE,RANDOM URINE Ordered. EDMS 12:43 SODIUM,RANDOM URINE Ordered. EDMS 12:43 OSMOLALITY,URINE Ordered. EDMS 12:50 Admission Orders was scanned into [employer] and attached to record. ar3 14:40 T-Sheet-- Draft Copy was scanned into [employer] and attached to record. klr 14:41 Radiology Report was scanned into [employer] and attached to record. klr 15:59 ECG/EKG was scanned into [employer] and attached to record. gb 15:59 Consents was scanned into [employer] and attached to record. gb 16:00 BONE MARROW CULTURE & GS Ordered. EDMS 16:31 BONE MARROW CULTURE & GS Ordered. EDMS Administered Medications: 12:03 Drug: Tetanus- Diptheria-Acellular Pertussis 0.5 ml [diphth,pertussis(acel),tetanus 2.5 [facility] Lf unit-8 mcg-5 Lf/0.5mL IM syringe (0.5 mL)] {Jewel Hole Rough Opener: [employer]. Exp: 05/18/2018. Lot #: [id number]. } Route: IM; Site: left deltoid; 12:03 Drug: cefTRIAXone 2 grams Route: IVPB; Infused Over: 30 mins; Site: right antecubital; [facility] 12:30 Drug: Ondansetron 4 mg Route: IVP; Site: right antecubital; [facility] 13:02 Drug: morphine 4 mg Route: IVP; Site: right antecubital; [facility] Signatures: Dispatcher [employer] EDMS Nicole Villatoro MD MD sd1 Joy Valverde, RN RN [facility] Mar yAnn Kaye, Reg Reg gb Amy Heck, Reg Reg lg Bailee Alejandro, PA-C PA-C ef1 Kiley Hernandez, APPLIANCE SERVICE SUPERVISOR APPLIANCE SERVICE SUPERVISOR ar3 Linnea Arriola RN RN [facility] Deana Day The chart was reviewed and I authenticate all verbal orders and agree with the evaluation and treatment provided.Attachments: 11:44 [facility] Payment Agreement lg 12:50 Admission Orders ar3 14:40 T-Sheet-- Draft Copy klr 15:59 ECG/EKG gb Chart Complete MTDD
--- NOTE | 2016-04-04 14:20 | EDDOCDS ---
Nurse's Notes [facility] Name: Jone Kennedy Age: 60 yrs Sex: Male : 1955 Arrival Date: 04/02/2016 Time: 10:45 Bed 4 Private MD: Diagnosis: Unspecified fracture of skull-depressed skull fracture with scalp laceration and pneumocephalus Presentation: 04/02 10:48 Presenting complaint: Patient states: was dropping a big tree and it spun and hit srm another tree branch that fell and hit him in the head. not on blood thinners and no LOC. large lac to right forehead/ top of head. Adult Sepsis Screening: The patient does not have new or worsening altered mentation. Patient's respiratory rate is less than 22. Systolic blood pressure is greater than 100. Patient has a qSOFA score of 0- Negative Sepsis Screen. Suicide/Homicide risk assessment- the patient denies having any suicidal and/or homicidal ideations and does not present with any other emotional, behavioral or mental health complaints. Status: Patient is not a sales service manager or dependent. Transition of care: patient was not received from another setting of care. 10:48 Acuity: ODALYS Level 4 srm 10:48 Method Of Arrival: Walkin/Carried/Asstd srm 12:22 Acuity: ODALYS Level 2 ml6 Triage Assessment: 10:50 General: Appears in no apparent distress, Behavior is appropriate for age, cooperative. srm Pain: Pain currently is 5 out of 10 on a pain scale. 10:50 HIV screening NA for this visit Offered previously. srm Historical: - Allergies: Ibuprofen (kidney failure); - Home Meds: 1. atenolol 100 mg Oral tab 1 tab once daily 2. lisinopril 2.5 mg Oral tab 1 tab once daily 3. amlodipine 10 mg Oral tab 1 tab once daily 4. omeprazole 20 mg Oral cpDR 1 cap once daily - PMHx: Hypertension; GERD; - PSHx: Hernia repair; Tonsillectomy; - Social history: Smoking status: Patient states former smoker of tobacco. No barriers to communication noted, The patient speaks fluent Indonesian, Speaks appropriately for age. - Family history: Not pertinent. - : The pt / caregiver states he / she is not on anticoagulants. Home medication list is obtained from the patient. - Exposure Risk Screening:: None identified. Screenin:20 Screening information is obtained from family members. Primary language is Indonesian. jam1 Fall risk: No risks identified. Assistance ADL's: requires no assistance with activities of daily living. Abuse/DV Screen: The patient / caregiver reports he/she is: not in a situation that causes fear, pain or injury. Nutritional screening: No deficits noted. Exposure Risk Screening: None identified. Advance Directives: Currently, there is no health care proxy. There is no active DNR order. There is no living will. There is no Power of Senior Telecommunications Specialist. Advance directive information has not previously been placed in an [facility] medical record. Further advance directive information is declined. home support is adequate. Assessment: 10:55 Neurological: Level of Consciousness is awake, alert, Oriented to person, place, time, 6 Service Transformer Repair Supervisor are equal bilaterally Moves all extremities. Full function Gait is steady, Speech is normal, Facial symmetry appears normal, Pupils are PERRLA. Cardiovascular: No deficits noted. Capillary refill < 3 seconds is brisk in bilateral fingers toes. Respiratory: No deficits noted. Airway is patent Respiratory effort is even, unlabored, Respiratory pattern is regular, symmetrical, Breath sounds are clear bilaterally. GI: No deficits noted. Injury Description: Laceration sustained to right temporal area and right side of forehead is jagged, > 20 cm long, with pulsatile bleeding, was sustained 1-2 hours ago. is bleeding profusely a dressing was applied. 11:55 General: Appears in no apparent distress, comfortable, Behavior is appropriate for age, [facility] cooperative, pleasant. 11:55 Neurological: Level of Consciousness is awake, alert, Oriented to person, place, time, [facility] Service Transformer Repair Supervisor are equal bilaterally Moves all extremities. Full function Gait is steady, Speech is normal, Facial symmetry appears normal, Pupils are PERRLA. Cardiovascular: Rhythm is sinus rhythm. Respiratory: Airway is patent Respiratory effort is even, unlabored, Respiratory pattern is regular, symmetrical. Injury Description: Laceration sustained to face, head, scalp. 12:15 General: head wound continues to drain moderate amount bright red blood through [facility] bandage, reinforcements applied. 12:30 General: Dr. Sexton at bedside, dressing removed and reapplied, moderate amount [facility] bleeding present. 13:05 General: no changes from previous, prepped for OR, accompanied by family members, [facility] denies further needs. Vital Signs: 10:49 BP 169 / 95; Pulse 79; Resp 20; Temp 97.7; Pulse Ox 97% ; Weight 105.23 kg; Height 5 jlf ft. 10 in. (177.80 cm); Pain 5/10; 11:41 BP 161 / 86 (auto/); cjh 11:43 Pulse 60 MON; cjh 11:56 BP 146 / 86 (auto/); cjh 11:56 Pulse 62 MON; cjh 12:12 BP 166 / 109 (auto/); cjh 12:12 Pulse 66 MON; cjh 12:24 BP 149 / 84 (auto/); cjh 12:25 Pulse 64 MON; Pulse Ox 98% ; cjh 12:26 BP 149 / 90 (auto/); cjh 12:27 Pulse 64 MON; Pulse Ox 98% ; cjh 12:41 BP 144 / 81 (auto/); cjh 12:42 Pulse 66 MON; Pulse Ox 96% ; cjh 12:56 BP 140 / 82 (auto/); cjh 12:57 Pulse 64 MON; Pulse Ox 97% ; cjh 13:07 BP 140 / 82; Pulse 64; Resp 18; Temp 99.7; Pulse Ox 97% ; Pain 1/10; cjh 10:49 Body Mass Index 33.29 (105.23 kg, 177.80 cm) [facility] Vitals: 10:49 Log In Time: April 02, 2016 at 10:48. RN notified that patient meets Red Flag [facility] criteria. ED Course: 10:47 Patient visited by Gage Gao PCA. jlf 10:47 Patient moved to Waiting jlf 10:49 Triage Initiated srm 10:50 Patient visited by Gage Gao PCA. jlf 10:50 Patient moved to Pre RCE jlf 10:57 Patient moved to PR2 / 26 srm 10:58 Patient moved to I2 / M2 js13 11:01 Bailee Alejandro PA-C is PHCP. ef1 11:01 Nicole Villatoro MD is Attending Physician. ef1 11:01 Patient visited by Bailee Alejandro PA-C. ef1 11:03 Pt greeted and oriented to ED. Patient advised of names of staff involved in care, jam1 location of call morales, wait times and NPO status. Patient has correct armband on for positive identification. Bed in low position. Call light in reach. Side rails up X 1. Adult w/ patient. Door closed. 11:24 Patient visited by Bailee Alejandro PA-C. ef1 11:39 Patient moved to 4 ef1 11:44 Patient name changed from Edward\S\\S\Jorge\S\ to Edward\S\Dane\S\Jorge. EDMS 11:44 [facility] Payment Agreement was scanned into [employer] and attached to record. lg 11:58 Aftab Avinashev is Hospitalizing Provider. sd1 11:59 The patient / caregiver is instructed regarding the plan of care and ED course. Cardiac ml6 monitor on. Pulse ox on. NIBP on. 11:59 Inserted peripheral IV: 16gauge IV in right antecubital area and blood collected. ml6 Patient tolerated the procedure well. No procedures done that require assistance. Labs drawn. (by ED staff). Sent per order to lab. 12:07 CT Head Without Contrast Returned. EDMS 12:23 paperboard boxes estimator on. Pulse ox on. NIBP on. lr2 12:23 EKG done. (by ED staff). Reviewed by Cathleen Kevin. lr2 12:24 Patient visited by Anna Phillip. lr2 12:38 CT Spine,Cervical W/o Contrast Returned. EDMS 12:38 Chest, 1 View Returned. EDMS 12:50 Admission Orders was scanned into [employer] and attached to record. ar3 14:40 T-Sheet-- Draft Copy was scanned into [employer] and attached to record. klr 14:41 Radiology Report was scanned into [employer] and attached to record. klr 14:47 EKG-ADULT Returned. EDMS 15:59 ECG/EKG was scanned into [employer] and attached to record. gb 15:59 Consents was scanned into [employer] and attached to record. gb Administered Medications: 12:03 Drug: Tetanus- Diptheria-Acellular Pertussis 0.5 ml [diphth,pertussis(acel),tetanus 2.5 cj Lf unit-8 mcg-5 Lf/0.5mL IM syringe (0.5 mL)] {Tank Cleaning Supervisor: [employer]. Exp: 05/18/2018. Lot #: [id number]. } Route: IM; Site: left deltoid; 12:03 Drug: cefTRIAXone 2 grams Route: IVPB; Infused Over: 30 mins; Site: right antecubital; [facility] 12:30 Drug: Ondansetron 4 mg Route: IVP; Site: right antecubital; [facility] 13:02 Drug: morphine 4 mg Route: IVP; Site: right antecubital; [facility] Attachments: 15:59 Consents gb Order Results: Lab Order: CBC; SPEC' 04/02/16 11:56 Test: WHITE BLOOD COUNT; Value: 7.6; Range: 4.0-10.0; Units: K/mm3; Status: F Test: RED BLOOD COUNT; Value: 5.25; Range: 4.30-6.10; Units: M/mm3; Status: F Test: HEMOGLOBIN; Value: 14.5; Range: 14.0-18.0; Units: g/dl; Status: F Test: HEMATOCRIT; Value: 42.0; Range: 42.0-52.0; Units: %; Status: F Test: MEAN CORPUSCULAR VOLUME; Value: 80.0; Range: 80.0-96.0; Units: fl; Status: F Test: MEAN CORPUSCULAR HEMOGLOBIN; Value: 27.7; Range: 27.0-33.0; Units: pg; Status: F Test: MEAN CORPUSCULAR HGB CONC; Value: 34.6; Range: 32.0-36.5; Units: g/dl; Status: F Test: RED CELL DISTRIBUTION WIDTH; Value: 13.9; Range: 11.5-14.5; Units: %; Status: F Test: PLATELET COUNT, AUTOMATED; Value: 196; Range: 150-450; Units: k/mm3; Status: F Lab Order: MED Profile; SPEC'M 04/02/16 11:56 Test: GLUCOSE, FASTING; Value: 114; Range: 80-110; Abnormal: Above high normal; Units: MG/DL; Status: F Test: BLOOD UREA NITROGEN; Value: 22; Range: 7-18; Abnormal: Above high normal; Units: MG/DL; Status: F Test: CREATININE FOR GFR; Value: 1.34; Range: 0.70-1.30; Abnormal: Above high normal; Units: MG/DL; Status: F Test: GLOMERULAR FILTRATION RATE; Value: 57.9; Range: >49; Status: F Test: SODIUM LEVEL; Value: 142; Range: 136-145; Units: MEQ/L; Status: F Test: POTASSIUM SERUM; Value: 4.3; Range: 3.5-5.1; Units: MEQ/L; Status: F Test: CHLORIDE LEVEL; Value: 108; Range: 98-107; Abnormal: Above high normal; Units: MEQ/L; Status: F Test: CARBON DIOXIDE LEVEL; Value: 25; Range: 21-32; Units: MEQ/L; Status: F Test: ANION GAP; Value: 9; Range: 8-16; Units: MEQ/L; Status: F Test: CALCIUM LEVEL; Value: 8.8; Range: 8.8-10.2; Units: MG/DL; Status: F Test Note: ; Units are mL/min/1.73 m2 Chronic Kidney Disease Staging per NKF: Stage I & II GFR >=60 Normal to Mildly Decreased Stage III GFR 30-59 Moderately Decreased Stage IV GFR 15-29 Severely Decreased Stage V GFR <15 Very Little GFR Left ESRD GFR <15 on WOOD BOX MAKER Lab Order: PT/INR; SPEC'M 04/02/16 11:55 Test: PROTHROMBIN TIME; Value: 12.6; Range: 12.3-14.5; Units: SECONDS; Status: F Test: INR; Value: 0.93; Status: F Test Note: ; THERAPUTIC HUMAN INR VALUES INDICATIONS NORMAL RANGES PROPHYLAXIS/TREATMENT OF: VENOUS THROMBOSIS 2.0-3.0 PULMONARY EMBOLISM 2.0-3.0 PREVENTION OF SYSTEMIC EMBOLISM FROM: TISSUE HEART VALVES 2.0-3.0 ACUTE MYOCARDIAL INFARCTION 2.0-3.0 VALVULAR HEART DISEASE 2.0-3.0 ATRIAL FIBRILLATION 2.0-3.0 MECHANICAL VALVES(HIGH RISK) 2.5-3.5 RECURRENT MYOCARDIAL INFARCTION 2.5-3.5 Radiology Order: CT Head Without Contrast Test: CT Head Without Contrast REASON FOR EXAMINATION: Trauma; CT brain without contrast:; ; History: Trauma. No comparison studies.; ; Findings: Bone window settings demonstrate a right frontal scalp laceration and; hematoma. There is a depressed right frontal bone calvarial fracture with 3.8 mm; of depression. A moderate amount of pneumocephalus is seen in the right cerebral; hemisphere extending over the anterior aspect of frontal lobe; but also at the; vertex adjacent to the falx. The fracture extends along the temporal region on; the right side without further depression.; ; There is no visible intracranial hemorrhage. There is diffuse cerebral atrophy.; No infarct or mass lesion is seen. Vascular calcification is noted and there is; some left sphenoid sinus mucosal thickening.; ; Impression:; ; Depressed right frontotemporal skull fracture with scalp laceration and right; pneumocephalus. No intracranial hemorrhage is seen. Vascular calcification is; noted. There is some mucosal thickening in the left sphenoid sinus.; ; ; Signed by; Kleber Arroyo MD 04/02/2016 11:45 A; Radiology Order: CT Spine,Cervical W/o Contrast Test: CT Spine,Cervical W/o Contrast REASON FOR EXAMINATION: Trauma; CT STUDY OF THE CERVICAL SPINE WITHOUT CONTRAST:; ; HISTORY: Trauma.; ; TECHNIQUE: Helical scanning is acquired and overlapping 2 mm high resolution; axial images were generated and reviewed at bone and soft tissue window settings.; Coronal and sagittal multiplanar reformations images are generated.; ; CT FINDINGS: There is no evidence of cervical spine element fracture. No skull; base fracture is seen. Cervical vertebral body heights are preserved. Alignment; is normal. There is straightening and slight reversal of the normal cervical; lordosis. Mild osteoarthritic facet disease is seen throughout the mid cervical; spine. Facet joints are normally aligned bilaterally at each cervical level on; multiplanar re-formations images. There is no evidence of intraspinal or; paraspinal hematoma. No extra vertebral abnormality is seen. Degenerative disc; disease is seen at multiple levels, most pronounced is C4-5, C5-6 and C6-7.; ; IMPRESSION:; ; Degenerative spondylosis changes, otherwise negative CT study of the cervical; spine without contrast. No fracture seen.; ; ; Signed by; Kleber Arroyo MD 04/02/2016 02:04 P; Radiology Order: EKG-ADULT Test: EKG-ADULT REASON FOR EXAMINATION: Trauma; Stationary ECG Study; [facility] - ED; ; Test Date: 2016-04-02; Pat Name: JONE KENNEDY Department:; Room: -; Gender: M Intranet Specialist: yaritza; : 1955 Requested By: Nicole Villatoro; Order Number: [id number] Reading MD: Caesar Ackerman; Measurements; Intervals [place]; Rate: 64 P: 27; VT: 143 QRS: 31; QRSD: 86 T: 4; QT: 380; QTc: 394; Interpretive Statements; SINUS RHYTHM; EARLY REPOLARIZATION; NONSPECIFIC T WAVE ABNORMALITY; ; Electronically Signed On 04-02-2016 14:35:57 EST by Caesar Ackerman; Radiology Order: Chest, 1 View Test: Chest, 1 View REASON FOR EXAMINATION: Chest Pain; Portable chest: Single view.; ; History: Chest pain.; ; Comparison study: June 24, 2013; ; Findings: The lungs are well inflated and clear. EKG electrodes are seen.; Pulmonary vasculature is not increased. Heart size is normal. The pleural; angles are sharp. No bony abnormality is seen.; ; Impression:; ; No active disease.; ; ; Signed by; Kleber Arroyo MD 04/02/2016 12:08 P; Outcome: 11:59 Decision to Hospitalize by Provider. sd1 12:56 Discharge Assessment: Patient awake, alert and oriented x 3. No cognitive and/or [facility] functional deficits noted. Patient verbalized understanding of disposition instructions. patient administered narcotics - yes. Patient was admitted to the hospital or transferred to another facility. The following High Risk Discharge criteria are identified: None. Admitted to OR. critical. CT Study completed. Property :Personal belongings accompany Pt. 13:19 Patient left the ED. ar3 Signatures: Dispatcher [employer] EDMS Nicole Villatoro MD MD sd1 Joy Valverde, RN Linnea Patel, STEEL DIE ENGRAVER STEEL DIE ENGRAVER jam1 Mary Ann Kaye, Reg Reg gb Maria R, Amy, Reg Reg lg Fesahil, Bailee, PA-C PA-C ef1 Mauro Diaz RN RN ml6 Kiley Hernandez, STEEL DIE ENGRAVER STEEL DIE ENGRAVER ar3 Елена Villa RN RN js13 Linnea Arriola RN RN [facility] Gage Gao, STEEL DIE ENGRAVER STEEL DIE ENGRAVER Deana Langston Laura lr2 Corrections: (The following items were deleted from the chart) 12:48 11:55 General: Appears in no apparent distress, comfortable, Behavior is appropriate [facility] for age, cooperative, pleasant, [facility] 12:47 Neurological: Level of Consciousness is awake, alert, Oriented to person, place, [facility] time, Service Transformer Repair Supervisor are equal bilaterally Moves all extremities. Full function Gait is steady, Speech is normal, Facial symmetry appears normal, Pupils are PERRLA, [facility] 12:47 Cardiovascular: Rhythm is sinus rhythm [facility] 12:47 Respiratory: Airway is patent Respiratory effort is even, unlabored, Respiratory [facility] pattern is regular, symmetrical, [facility] 12:47 Injury Description: Laceration sustained to face [facility] Chart Complete [facility]
--- NOTE | 2016-04-04 14:21 | EDDOCDS ---
Physician Documentation [facility] Name: Jone Patel Age: 60 yrs Sex: Male : 1955 Arrival Date: 04/02/2016 Time: 10:45 Bed 4 Private MD: Disposition: 04/02/16 11:59 Hospitalization ordered by Jovon Ugalde for Inpatient Admission. Preliminary diagnosis is Unspecified fracture of skull - depressed skull fracture with scalp laceration and pneumocephalus. - Bed requested for Admit. - Status is Inpatient Admission. ar3 - Condition is Stable. - Problem is new. - Symptoms are unchanged. Historical: - Allergies: Ibuprofen (kidney failure); - Home Meds: 1. atenolol 100 mg Oral tab 1 tab once daily 2. lisinopril 2.5 mg Oral tab 1 tab once daily 3. amlodipine 10 mg Oral tab 1 tab once daily 4. omeprazole 20 mg Oral cpDR 1 cap once daily - PMHx: Hypertension; GERD; - PSHx: Hernia repair; Tonsillectomy; - Social history: Smoking status: Patient states former smoker of tobacco. No barriers to communication noted, The patient speaks fluent Belgian, Speaks appropriately for age. - Family history: Not pertinent. - : The pt / caregiver states he / she is not on anticoagulants. Home medication list is obtained from the patient. - Exposure Risk Screening:: None identified. Vital Signs: 04/02 10:49 BP 169 / 95; Pulse 79; Resp 20; Temp 97.7; Pulse Ox 97% ; Weight 105.23 kg / 231.99 jlf lbs; Height 5 ft. 10 in. (177.80 cm); Pain 5/10; 11:41 BP 161 / 86 (auto/); cjh 11:43 Pulse 60 MON; cjh 11:56 BP 146 / 86 (auto/); cjh 11:56 Pulse 62 MON; cjh 12:12 BP 166 / 109 (auto/); cjh 12:12 Pulse 66 MON; cjh 12:24 BP 149 / 84 (auto/); cjh 12:25 Pulse 64 MON; Pulse Ox 98% ; cjh 12:26 BP 149 / 90 (auto/); cjh 12:27 Pulse 64 MON; Pulse Ox 98% ; cjh 12:41 BP 144 / 81 (auto/); cjh 12:42 Pulse 66 MON; Pulse Ox 96% ; cjh 12:56 BP 140 / 82 (auto/); h 12:57 Pulse 64 MON; Pulse Ox 97% ; h 13:07 BP 140 / 82; Pulse 64; Resp 18; Temp 99.7; Pulse Ox 97% ; Pain 1/10; cjh 10:49 Body Mass Index 33.29 (105.23 kg, 177.80 cm) [facility] MDM: 11:01 Wound Care ordered. ef1 11:02 CT Head Without Contrast Ordered. EDMS 11:11 Tetanus- Diptheria-Acellular Pertussis 0.5 ml IM once; Routine booster 10-64yrs, >64 ef1 with child contact Worden Omnicell ordered. 11:17 Financial registration complete. lg 11:37 CT Spine,Cervical W/o Contrast Ordered. EDMS 11:37 IV Saline Lock ordered. sd1 11:37 cefTRIAXone 2 grams IVPB once over 30 mins; dilute in 50mL of NS or D5W ordered. sd1 11:38 CBC Ordered. EDMS 11:38 MED Profile Ordered. EDMS 11:38 PT/INR Ordered. EDMS 11:38 Supervisor Treating And Pumping/Pulse Ox/q 15 min VS ordered. sd1 11:44 [facility] Payment Agreement was scanned into [employer] and attached to record. lg 11:56 ECG WITH READING ER PHYS+CARDIAG ordered. EDMS 11:56 Chest, 1 View Ordered. EDMS 12:13 NPO DIET ordered. EDMS 12:18 CBC Reviewed. sd1 12:18 PT/INR Reviewed. sd1 12:18 CT Head Without Contrast Reviewed. sd1 12:19 morphine 4 mg IVP every 15 minutes; Document pain score/vitals after each dose (Hold if sd1 SBP < 90mmHg) x2 ordered. 12:19 Ondansetron 4 mg IVP once ordered. sd1 12:43 CREATININE,RANDOM URINE Ordered. EDMS 12:43 SODIUM,RANDOM URINE Ordered. EDMS 12:43 OSMOLALITY,URINE Ordered. EDMS 12:50 Admission Orders was scanned into [employer] and attached to record. ar3 14:40 T-Sheet-- Draft Copy was scanned into [employer] and attached to record. klr 14:41 Radiology Report was scanned into [employer] and attached to record. klr 15:59 ECG/EKG was scanned into [employer] and attached to record. gb 15:59 Consents was scanned into [employer] and attached to record. gb 16:00 BONE MARROW CULTURE & GS Ordered. EDMS 16:31 BONE MARROW CULTURE & GS Ordered. EDMS Administered Medications: 12:03 Drug: Tetanus- Diptheria-Acellular Pertussis 0.5 ml [diphth,pertussis(acel),tetanus 2.5 [facility] Lf unit-8 mcg-5 Lf/0.5mL IM syringe (0.5 mL)] {Mixing Technician: [employer]. Exp: 05/18/2018. Lot #: [id number]. } Route: IM; Site: left deltoid; 12:03 Drug: cefTRIAXone 2 grams Route: IVPB; Infused Over: 30 mins; Site: right antecubital; [facility] 12:30 Drug: Ondansetron 4 mg Route: IVP; Site: right antecubital; [facility] 13:02 Drug: morphine 4 mg Route: IVP; Site: right antecubital; [facility] Signatures: Dispatcher [employer] EDMS Nicole Villatoro MD MD sd1 Joy Valverde, RN RN [facility] Mary Ann Kaye, Reg Reg gb Amy Heck, Reg Reg lg Bailee Alejandro, PA-C PA-C ef1 Kiley Hernandez, MAIL SERVICE COORDINATOR MAIL SERVICE COORDINATOR ar3 Linnea Arriola RN RN [facility] Deana Day The chart was reviewed and I authenticate all verbal orders and agree with the evaluation and treatment provided.Attachments: 11:44 [facility] Payment Agreement lg 12:50 Admission Orders ar3 14:40 T-Sheet-- Draft Copy klr 15:59 ECG/EKG gb Chart Complete MTDD
--- NOTE | 2016-04-04 20:57 | DSES ---
DATE OF ADMISSION: 04/02/2016 DATE OF DISCHARGE: 04/04/2016 FINAL DIAGNOSIS: Acute head injury with open comminuted depressed skull fracture, right frontal bone. The patient was admitted through the emergency room after he got hurt while cutting a tree. A branch of tree fell on his head and knocked him down. The patient denied any loss of consciousness, though bystanders felt that he may have lost consciousness for a brief period of time. Initially when he was seen in the emergency room, he had a large lacerated wound on the frontoparietal region with CSF coming from the incision. The patient, after informed consent, was taken to the operating room where the comminuted depressed skull fracture was debrided. Duraplasty was performed. He did well from surgery and wanted to be discharged the same day of surgery although advised to stay in the hospital for at least a few days and today he was pacing the hallways, anxious to be discharged. He denied any symptoms. The incision was healing without any spinal fluid leakage. Postoperative CT scan showed expected postoperative changes. Patient had followup instructions on several occasions and also today and was discharged home. The patient is advised to keep the incision dry and take seizure precautions and to avoid drinking and driving. He was also advised to continue his home medications followup with his primary care physician.
== END 2016-04-04 17:55 | disposition home or self-care (01) | DRG 20 ==
LOC: M ED 10:45 → M ED INP 12:45 → M ICU 16:59 → M PCU 04-04 14:08
PROVIDERS: ADMIT Neurological Surgery; ATTEND Neurological Surgery
PROC: 00U20JZ Supplement Dura Mater with Synthetic Substitute, Open Approach (ICD-10-PCS; 2016-04-02)
PROC: 0NQ00ZZ Repair Skull, Open Approach (ICD-10-PCS; principal; 2016-04-02 12:15)
DX: S02.0XXB Fracture of vault of skull, initial encounter for open fracture (principal); G93.89 Other specified disorders of brain; I11.9 Hypertensive heart disease without heart failure; G96.0 Cerebrospinal fluid leak; W20.8XXA Other cause of strike by thrown, projected or falling object, initial encounter; Y92.009 Unspecified place in unspecified non-institutional (private) residence as the place of occurrence of the external cause; K21.9 Gastro-esophageal reflux disease without esophagitis; Z79.899 Other long term (current) drug therapy; Z88.8 Allergy status to other drugs, medicaments and biological substances

== ENCOUNTER → 2016-05-23 | Outpatient (REF) | payer BC ==
[~2016-05-23] MED LIST changes: +ACET50TAOT PO; +LISI2.5T3 PO; +OMEP20CA3 PO
== END ==
LOC: M LAB REF 16:00
PROVIDERS: ATTEND Neurological Surgery
DX: S02.0XXD Fracture of vault of skull, subsequent encounter for fracture with routine healing (principal); X58.XXXD Exposure to other specified factors, subsequent encounter; Y93.9 Activity, unspecified; Y92.9 Unspecified place or not applicable; Y99.8 Other external cause status

== ENCOUNTER → 2016-06-02 | Outpatient (REF) | payer BC ==
[2016-06-02 19:49] LABS: MEAN CORPUSCULAR HEMOGLOBIN 27.1 pg (27.0-33.0); MEAN CORPUSCULAR HGB CONC 33.5 g/dl (32.0-36.5); MEAN CORPUSCULAR VOLUME 81.1 fl (80.0-96.0); RED CELL DISTRIBUTION WIDTH 14.3 % (11.5-14.5)
[2016-06-02 20:05] LABS: ERYTHROCYTE SEDIMENTATION RATE 15 mm/hr (0-20)
[2016-06-02 20:21] LABS: EOSINOPHILS 1 % (0-5)
== END ==
LOC: M LAB REF 09:20
PROVIDERS: ATTEND Neurological Surgery
DX: S01.02XA Laceration with foreign body of scalp, initial encounter (principal); X58.XXXA Exposure to other specified factors, initial encounter; Y92.9 Unspecified place or not applicable

== ENCOUNTER → 2016-06-08 | Outpatient (CLI) | payer BC ==
--- NOTE | 2016-06-08 09:38 | REP ---
CT study of the brain without contrast: History: Skull fracture. Follow-up craniotomy. Comparison CT study is from April 03, 2016. Comparison is also made with April 02, 2016 prior study. Findings: The patient is status post right frontal calvarial repair. There is scalp swelling overlying the cranial repair site with a 4.6 cm anteroposterior subgaleal low density area consistent with subgaleal fluid. The outer table fixation device is unchanged in position. There is some resorption or radiolucency developing in the elevated segment of the fractured cranium in the right frontal bone at the superior and anterior margin of the defect. There is no evidence of pneumocephalus. There is no evidence of subdural or epidural collection. Underlying brain parenchyma is unremarkable other than minimal diffuse atrophy. Little-white differentiation pattern is intact. There is some vascular calcification in the carotid siphons bilaterally. Mild mucosal thickening is seen in the left sphenoid sinus. Impression: Status post elevation and cranioplasty for depressed open skull fracture. Early resorption of the stabilized bone segment may reflect early healing change. There is, however, an overlying subgaleal fluid collection. This is nonspecific. Signed by Kleber Arroyo MD 06/08/2016 01:10 P
== END ==
LOC: M RAD 07:20
PROVIDERS: ATTEND Neurological Surgery
DX: S02.0XXB Fracture of vault of skull, initial encounter for open fracture (principal); X58.XXXD Exposure to other specified factors, subsequent encounter; Y93.9 Activity, unspecified; Y92.9 Unspecified place or not applicable; Y99.8 Other external cause status

== ENCOUNTER → 2016-06-22 | Outpatient (REF) | payer BC ==
[2016-06-22 12:29] LABS: BASO % 0.6 % (0.0-1.0); EOS # 0.2 K/mm3 (0.0-0.50); EOS % 3.8 % (0.0-3.0); LARGE UNSTAINED CELL # 0.1 K/mm3 (0.0-0.4); LARGE UNSTAINED CELL % 2.3 % (0.0-4.0); LYMPH # 1.2 K/mm3 (1.5-4.5); LYMPH % 21.5 % (24.0-44.0); MEAN CORPUSCULAR HEMOGLOBIN 28.2 pg (27.0-33.0); MEAN CORPUSCULAR HGB CONC 34.7 g/dl (32.0-36.5); MEAN CORPUSCULAR VOLUME 81.3 fl (80.0-96.0); MONO # 0.4 K/mm3 (0.0-0.8); MONO % 7.1 % (0.0-5.0); NEUTROPHILS # 3.5 K/mm3 (1.8-7.7); NEUTROPHILS % 64.7 % (36.0-66.0); PLATELET COUNT, AUTOMATED 231 k/mm3 (150-450); RED CELL DISTRIBUTION WIDTH 14.5 % (11.5-14.5); WHITE BLOOD COUNT 5.4 K/mm3 (4.0-10.0)
[2016-06-22 12:30] LABS: ANION GAP 7 MEQ/L (8-16); BLOOD UREA NITROGEN 19 MG/DL (7-18); CARBON DIOXIDE LEVEL 25 MEQ/L (21-32); CHLORIDE LEVEL 108 MEQ/L (98-107); CREATININE FOR GFR 1.25 MG/DL (0.70-1.30); GLOMERULAR FILTRATION RATE > 60.0 (>49); GLUCOSE, FASTING 113 MG/DL (80-110); POTASSIUM SERUM 4.9 MEQ/L (3.5-5.1); SODIUM LEVEL 140 MEQ/L (136-145)
[2016-06-22 13:04] LABS: ERYTHROCYTE SEDIMENTATION RATE 7 mm/hr (0-20)
== END ==
LOC: M SFHCPLAZ 08:49
PROVIDERS: ATTEND Internal Medicine Infectious Disease
DX: Z22.39 Carrier of other specified bacterial diseases (principal)

== ENCOUNTER → 2019-09-16 | Outpatient (REF) | payer BC ==
[~2019-09-16] MED LIST changes: +ACET500T15 PO; -ACET50TAOT PO; -AMLO10TA2 PO; +AMLO1TAB25 PO; +FERR1TAB8 PO; -FERR325T PO; +LISI10TA15 PO; -LISI10TA2 PO; +LISI2.5T2 PO; -LISI2.5T3 PO; +OMEP1CAP73 PO; -OMEP20CA3 PO
== END ==
LOC: M LAB REF 17:03
PROVIDERS: ATTEND Family Medicine
DX: M10.9 Gout, unspecified (principal)

== ENCOUNTER → 2020-02-12 | Outpatient (REF) | payer BC | LOC: M LAB REF 09:07 | PROVIDERS: ATTEND Dermatology | DX: L90.5 Scar conditions and fibrosis of skin (principal) ==

== ENCOUNTER → 2020-11-12 | Outpatient (REF) | payer MEDICARE ==
[~2020-11-12] MED LIST changes: -LISI2.5T2 PO; +LISI2.5T9 PO
== END ==
LOC: M LAB REF 15:50
PROVIDERS: ATTEND Family Medicine
DX: M10.9 Gout, unspecified (principal)

== ENCOUNTER → 2020-11-30 | Outpatient (REF) | payer MEDICARE ==
[2020-11-30 14:04] LABS: STABLE ALKPHOS 104 U/L
[2020-11-30 14:05] LABS: LABILE ALKPHOS 20 U/L
[2020-11-30 14:06] LABS: % LABILE ALKALINE PHOSPHATASE 16 %
== END ==
LOC: M LAB REF 11:47
PROVIDERS: ATTEND Family Medicine
DX: E78.5 Hyperlipidemia, unspecified (principal); R74.8 Abnormal levels of other serum enzymes

== ENCOUNTER → 2020-12-09 | Outpatient (CLI) | payer MEDICARE ==
--- NOTE | 2020-12-09 08:53 | REP ---
INDICATION: ELEVATED LFT'S COMPARISON: None. TECHNIQUE: Real time torres scale ultrasound examination using curved array transducer. FINDINGS: Liver is hyperechoic suggesting fatty infiltration. No focal hepatic lesion identified. Pancreas is incompletely evaluated due to interposed bowel gas. The gallbladder is normal and without gallstones, wall thickening, or pericholecystic fluid. No biliary ductal dilatation is appreciated and the common bile duct measures 4.1 mm diameter. Right kidney is normal in reniform shape without hydronephrosis and measures 12.2 x 5.5 x 6.4 cm. No ascites in the visualized right upper quadrant. IMPRESSION: Hepatosteatosis. <Electronically signed by Rajiv Garcia > 12/09/20 [id number]
== END ==
LOC: M RAD 07:56
PROVIDERS: ATTEND Family Medicine
DX: R74.8 Abnormal levels of other serum enzymes (principal); K76.0 Fatty (change of) liver, not elsewhere classified

== ENCOUNTER → 2021-09-30 | Outpatient (CLI) | payer MEDICARE ==
[~2021-09-30] MED LIST changes: -LISI10TA15 PO; +LISI10TA24 PO
== END ==
LOC: M RAD 08:51
PROVIDERS: ATTEND Family Medicine
DX: Z13.6 Encounter for screening for cardiovascular disorders (principal)

== ENCOUNTER → 2021-12-12 | Outpatient (CLI) | payer MEDICARE ==
[~2021-12-12] MED LIST changes: +ALLO100T PO; +ATOR1TAB19 PO
== END ==
LOC: M LABSMTC 09:52
PROVIDERS: ATTEND Anesthesiology
DX: Z01.812 Encounter for preprocedural laboratory examination (principal); Z20.822 Contact with and (suspected) exposure to COVID-19

== ENCOUNTER 2021-12-16 10:00 | Day surgery (SDC) | payer MEDICARE ==
[~2021-12-16] VITALS: Ht 177.8 cm; Wt 113.9 kg
[~2021-12-16 10:00] MED LIST changes: +NS 1,000 ML IV ONE
[2021-12-16] MEDS ORDERED: fentaNYL 100 MCG/2 ML INJECTION As Ordered ONE (11:23)
[2021-12-16] MEDS ORDERED: propofoL 200 MG/20 ML VIAL As Ordered ONE (11:35)
[2021-12-16] MEDS ORDERED: LIDOCAINE 2% 100MG/5ML SDV (FOR ANES.) As Ordered ONE (11:35)
[2021-12-16 12:21] VITALS: BP 146/89
== END 2021-12-16 12:22 | disposition home or self-care (01) ==
LOC: M OPP 10:00
PROVIDERS: ATTEND Internal Medicine Gastroenterology
DX: Z12.11 Encounter for screening for malignant neoplasm of colon (principal); D12.2 Benign neoplasm of ascending colon; K57.30 Diverticulosis of large intestine without perforation or abscess without bleeding; K64.8 Other hemorrhoids; R12 Heartburn; Z79.02 Long term (current) use of antithrombotics/antiplatelets; Z79.899 Other long term (current) drug therapy; Z88.6 Allergy status to analgesic agent; I10 Essential (primary) hypertension; E78.00 Pure hypercholesterolemia, unspecified; M19.90 Unspecified osteoarthritis, unspecified site; Z87.891 Personal history of nicotine dependence
CPT/HCPCS: 43235; 45380; 88305; J3010

== ENCOUNTER → 2022-12-28 | Outpatient (REF) | payer MEDICARE ==
[~2022-12-28] MED LIST changes: -NS 1,000 ML IV ONE
== END ==
LOC: M LAB REF 13:14
PROVIDERS: ATTEND Family Medicine
DX: M10.9 Gout, unspecified (principal)